=== PATIENT | male | born 1950 | race Caucasian/White ===

== ENCOUNTER 2017-01-06 17:40 | Emergency (ER) | payer MEDICARE | END 2017-01-06 20:38 | disposition home or self-care (01) | LOC: ER1 17:40 | DX: H66.92 Otitis media, unspecified, left ear (principal); H72.2X2 Other marginal perforations of tympanic membrane, left ear; I10 Essential (primary) hypertension | CPT/HCPCS: 99282; Q0162 ==

== ENCOUNTER 2017-02-11 18:35 | Inpatient (IN) | payer MEDICARE ==
[~2017-02-11] VITALS: Ht 170.2 cm; Wt 105.2 kg
[2017-02-11 20:20] LABS: HEMOGLOBIN 14.6 gm/dl (14.0-17.5); RED BLOOD COUNT 4.71 M/UL (4.20-5.50); WHITE BLOOD COUNT 9.1 K/UL (4.5-11.0)
[2017-02-11 20:45] LABS: BUN/CREATININE RATIO 14 (0-10)
[2017-02-12] MEDS ORDERED: LISINOPRIL20 MG PO (03:45)
[2017-02-12] MEDS ORDERED: LOPRESSOR 50 MG50 MG PO (03:45)
[2017-02-12] MEDS ORDERED: ZYLOPRIM 100 M100 MG PO (03:45)
[2017-02-12] MEDS ORDERED: SIMVASTATIN20 MG PO (03:46)
[2017-02-12] MEDS ORDERED: LEVOTHYROXINE (04:04)
[2017-02-12] MEDS ORDERED: levothyroxine PO (04:25)
[2017-02-13 06:04] LABS: RED BLOOD COUNT 4.66 M/UL (4.20-5.50)
[2017-02-13 06:24] LABS: BUN/CREATININE RATIO 13 (0-10)
[2017-02-14 06:46] LABS: BUN/CREATININE RATIO 14 (0-10)
[2017-02-14 07:09] LABS: HEMOGLOBIN 13.9 gm/dl (14.0-17.5); RED BLOOD COUNT 4.56 M/UL (4.20-5.50); WHITE BLOOD COUNT 9.1 K/UL (4.5-11.0)
[2017-02-16 05:06] LABS: HEMOGLOBIN 13.3 gm/dl (14.0-17.5); RED BLOOD COUNT 4.42 M/UL (4.20-5.50); WHITE BLOOD COUNT 7.6 K/UL (4.5-11.0)
[2017-02-17] MEDS ORDERED: PROTONIX40 MG PO (20:01)
[2017-02-17] MEDS ORDERED: LORTAB 5-325 M1 EACH PO (20:02)
[2017-02-17] MEDS ORDERED: CATAPRES 0.1MG0.1 MG PO (20:02)
[2017-02-17] MEDS ORDERED: NORVASC 5 MG TAB5 MG PO (20:03)
== END 2017-02-17 20:43 | disposition home or self-care (01) | DRG 417 ==
LOC: ER1 18:35 → MED SURG 4 23:35 → ZEROF 23:35 → MED SURG 4 23:35
PROVIDERS: Family Medicine; Internal Medicine Infectious Disease; Physician Assistant; Surgery; ADMIT Internal Medicine
PROC: BF131ZZ Fluoroscopy of Gallbladder and Bile Ducts using Low Osmolar Contrast (ICD-10-PCS; 2017-02-16)
PROC: 0FT44ZZ Resection of Gallbladder, Percutaneous Endoscopic Approach (ICD-10-PCS; principal; 2017-02-16 15:30)
DX: K80.20 Calculus of gallbladder without cholecystitis without obstruction (principal); K85.10 Biliary acute pancreatitis without necrosis or infection; N17.9 Acute kidney failure, unspecified; I10 Essential (primary) hypertension; E78.5 Hyperlipidemia, unspecified; E03.9 Hypothyroidism, unspecified; M10.9 Gout, unspecified; R82.90 Unspecified abnormal findings in urine; Z85.038 Personal history of other malignant neoplasm of large intestine; Z90.49 Acquired absence of other specified parts of digestive tract; Z79.899 Other long term (current) drug therapy; Z98.890 Other specified postprocedural states; Z80.51 Family history of malignant neoplasm of kidney; Z82.49 Family history of ischemic heart disease and other diseases of the circulatory system
CPT/HCPCS: 36415; 47531; 76705; 80048; 80053; 80061; 81001; 82550; 82553; 83540; 83690; 83874; 84443; 84484; 85025; 85027; 87086; 93005; 96361; 96374; 96375; 96376; 99285; C9113; J0690; J0696; J1100; J1650; J2250; J2270; J2405; J2550; J2710; J3010; J7030; J7050; J7120; Q9962